=== PATIENT | female | born 1975 | race African-American/Black ===

== ENCOUNTER 2017-07-11 01:30 | Emergency (ER) | payer SELFPAY ==
[~2017-07-11] VITALS: Ht 170.2 cm; Wt 143.6 kg
[2017-07-11 01:33] VITALS: Ht 170.2 cm; Wt 143.6 kg
[2017-07-11] MEDS ORDERED: NPH10OT LEFT EAR (01:58)
--- NOTE | 2017-07-11 02:18 | ERD ---
ER Documentation Chief Complaint Chief Complaint foreign body left ear" spider" HPI 41-year-old female presents here to emergency department for complaints of an insect on the left ear. Patient is complaining of sharp pain 4/10 scale, worse upon movement of the insect. She said she drowned the insect with mineral oil at home. Now it has stopped moving. Patient denies any problems of the hearing. Patient denies any ear discharge ROS All systems reviewed and are negative except as per history of present illness. Medications Home Meds Active Scripts Neomycin/Polymyxin/Hydrocort* (Cortisporin* Otic) 10 Ml Susp, 4 DROP LEFT EAR QID for 7 Days, EA Prov:LORENA MEEKS [employer] 07/11/17 Allergies Allergies: Coded Allergies: No Known Allergy (Unverified , 07/11/17) PMhx/Soc Medical and Surgical Hx: pt denies Medical Hx, pt denies Surgical Hx History of Surgery: No Anesthesia Reaction: No Hx Neurological Disorder: No Hx Respiratory Disorders: No Hx Cardiac Disorders: No Hx Psychiatric Problems: No Hx Miscellaneous Medical Probl: No Hx Alcohol Use: No Hx Substance Use: No Hx Tobacco Use: No Smoking Status: Never smoker FmHx Family History: No coronary disease, No diabetes, No other Physical Exam Vitals Vital Signs Date Time Temp Pulse Resp B/P Pulse Ox O2 Delivery O2 Flow Rate FiO2 07/11/17 01:33 98.3 77 20 143/80 100 Physical Exam GENERAL: The patient is well developed and appropriate for usual state of health, in no apparent distress. HEENT: Atraumatic. Ears: Normal tympanic membrane, no erythema or bulging. No ear canal swelling. No ear discharge. Left ear insect. Nose: normal nasal turbinates, no erythema or swelling. Normal nasal discharge. Throat: oropharynx clear. No tonsillar swelling or tonsillar exudates. No lymphadenopathy. CHEST: Clear to auscultation bilaterally. There are no rales, wheezes or rhonchi. HEART: Regular rate and rhythm. No murmurs, clicks, rubs or gallops. No S3 or S4. ABDOMEN: Soft, nontender and nondistended. Good bowel sounds. No rebound or guarding. No gross peritonitis. No gross organomegaly or masses. No Luciano sign or McBurney point tenderness. BACK: No midline or flank tenderness. EXTREMITIES: Equal pulses bilaterally. There is no peripheral clubbing, cyanosis or edema. No focal swelling or erythema. Full range of motion. Grossly neurovascularly intact. NEURO: Alert and oriented. Cranial nerves 2-12 intact. Motor strength in all 4 extremities with 5/5 strength. Sensation grossly intact. Normal speech and gait. SKIN: There is no apparent rash or petechia. The skin is warm and dry. HEMATOLOGIC AND LYMPHATIC: There is no evidence of excessive bruising or lymphedema. No gross cervical, axillary, or inguinal lymphadenopathy. Procedures/MDM Procedure note: After patient's verbal consent, the left ear insect was removed. No TM perforation, no other foreign body noted. Patient tolerated well. Medical Decision making: Patient had in the left ear. This was removed without any difficulty. No TM perforation, no symptoms of any other infection. Corticosporin was given to prevent infection of affected area, is advised to follow-up with primary care doctor in 3 days for reevaluation of symptoms. Patient was advised to return to emergency department for any worsening symptoms. Disposition: Home. Stable Departure Diagnosis: Primary Impression: Ear foreign body Encounter type: initial encounter Laterality: left Qualified Code: T16.2XXA - Foreign body of left ear, initial encounter Condition: Stable Patient Instructions: Foreign Body, Ear Canal (Removed) LORENA MEEKS NP Jul 11, 2017 02:18
== END 2017-07-11 02:21 | disposition home or self-care (01) ==
LOC: FTE 01:30
DX: T16.2XXA Foreign body in left ear, initial encounter (principal); X58.XXXA Exposure to other specified factors, initial encounter; Y92.9 Unspecified place or not applicable
CPT/HCPCS: 99283